=== PATIENT | male | born 1955 | race Caucasian/White ===

== ENCOUNTER → 2016-09-24 | Outpatient (CLI) | payer BC | END | disposition home or self-care (01) | LOC: PCVCIMAG 08:17 | PROVIDERS: ATTEND Internal Medicine Cardiovascular Disease | DX: I25.10 Atherosclerotic heart disease of native coronary artery without angina pectoris (principal); R07.9 Chest pain, unspecified | CPT/HCPCS: 78452; 93017; A9500 ==

== ENCOUNTER → 2018-06-01 | Outpatient (CLI) | payer OTHER ==
--- NOTE | 2018-06-01 13:48 | PCVCIMAG ---
APPROVED REPORT Study performed: 06/01/2018 10:11:11 EXAM: Comprehensive 2D, Doppler, and color-flow Echocardiogram Patient Location: Echo lab Status: routine BSA: 2.24 HR: 55 bpmBP: 110/78 mmHg Rhythm: Bradycardia Other Information Study Quality: Adequate Indications CAD bicuspid aortic valve 2D Dimensions IVSd: 11.15 (7-11mm)LVOT Diam: 22.64 (18-24mm) LVDd: 49.02 mm PWd: 9.85 (7-11mm)Ascending Ao: 35.94 (22-36mm) LVDs: 34.23 (25-40mm) Left Atrium: 39.83 (27-40mm) Aortic Root: 34.33 mm LV Single Plane 4CH: 58.32 % LV Single Plane 2CH: 64.78 % Biplane EF: 61.5 % Volumes Left Atrial Volume (Systole) Single Plane 4CH: 77.16 mLSingle Plane 2CH: 68.93 mL LA ESV Index: 37.00 mL/m2 Aortic Valve AoV Peak Hernandez.: 1.70 m/s AO Peak Gr.: 12.27 mmHgLVOT Max P.85 mmHg LVOT Max V: 0.98 m/s JESSICA Vmax: 2.32 cm2 Mitral Valve E/A Ratio: 1.2 MV Decel. Time: 291.29 ms MV E Max Hernandez.: 0.49 m/s MV A Heranndez.: 0.42 m/s MV PHT: 84.47 ms IVRT: 107.27 ms Pulmonary Valve PV Peak Hernandez.: 1.07 m/sPV Peak Gr.: 4.56 mmHg Pulmonary Vein P Vein S: 0.26 m/sP Vein A: 0.35 m/s P Vein D: 0.36 m/sP Vein A Dur.: 124.6 msec P Vein S/D Ratio: 0.72 Tricuspid Valve TR Peak Hernandez.: 2.31 m/s TR Peak Gr.: 21.33 mmHg Left Ventricle The left ventricle is normal size. There is normal LV segmental wall motion. There is normal left ventricular wall thickness. Left ventricular systolic function is normal. The left ventricular ejection fraction is within the normal range. LVEF is 60-65%. Grade I - abnormal relaxation pattern. Right Ventricle The right ventricle is normal size. The right ventricular systolic function is normal. Atria Left atrium is mildly dilated. The right atrium size is normal. Aortic Valve The aortic valve is mildly sclerotic. The aortic valve is bicuspid. No aortic regurgitation is present. There is no aortic valvular stenosis. Mitral Valve The mitral valve is normal in structure. Trace mitral regurgitation. No evidence of mitral valve stenosis. Tricuspid Valve The tricuspid valve is normal in structure. Trace tricuspid regurgitation with PAP of 28 mmHg. Pulmonic Valve The pulmonary valve is normal in structure. Trace pulmonic regurgitation. Great Vessels The aortic root is normal in size. IVC is normal in size and collapses >50% with inspiration. Pericardium There is no pericardial effusion. There is no pleural effusion. <Conclusion> The left ventricle is normal size. LVEF is 60-65%. Grade I - abnormal relaxation pattern. The right ventricle is normal size. Left atrium is mildly dilated. The aortic valve is mildly sclerotic. The aortic valve is bicuspid. There is no aortic valvular stenosis. Trace mitral regurgitation. Trace tricuspid regurgitation with PAP of 28 mmHg. The aortic root is normal in size. There is no pericardial effusion.
== END | disposition home or self-care (01) ==
LOC: PCVCIMAG 09:19
PROVIDERS: ATTEND Internal Medicine Cardiovascular Disease
DX: I25.10 Atherosclerotic heart disease of native coronary artery without angina pectoris (principal); G47.33 Obstructive sleep apnea (adult) (pediatric); Q23.1 Congenital insufficiency of aortic valve
CPT/HCPCS: 93306

== ENCOUNTER → 2018-10-11 | Outpatient (CLI) | payer OTHER ==
--- NOTE | 2018-10-11 12:16 | PCVCIMAG ---
APPROVED REPORT Study performed: 10/11/2018 10:48:50 Exam: Stress Echocardiogram Indication: CAD , Palpitations, bicuspid AV Patient Location: Echo lab Stress Nurse: Alyx Rivera RN Status: routine Ht: 6 ft 0 in HR: 68 bpm BP: 114/72 mmHg Rhythm: NSR Procedure The patient underwent an Exercise Stress Test using the Alcides Protocol. Blood pressure, heart rate, and EKG were monitored. An Echocardiogram was performed by clinical technician in four stages in quad fashion. At peak stress, four selected images were obtained and placed side by side with resting images for comparison. Stress Test Details Stress Test: Exercise stress testing was performed using a Alcides protocol. HR Resting HR: 68 bpmMax Heart Rate (APMHR): 155 bpm Max HR Achieved: 134 bpmTarget HR (85% APMHR): 131 bpm % of APMHR: 86 Recovery HR: 68 bpm HR response to stress: Normal HR response to stress BP Resting BP: 114/72 mmHg Max BP: 160/74 mmHg Recovery BP: 138/74 mmHg BP response to stress: Normal blood pressure response to stress. ECG Resting ECG: Sinus Rhythm Stress ECG: Sinus Rhythm ST Change: Normal Arrhythmia: None Recovery ECG: Sinus Rhythm Recovery ST Change: Normal Recovery Arrhythmia: None Clinical Reason for Termination: Maximal effort Stress Symptoms: Dyspnea Exercise duration: 10 min sec Highest Stage Achieved: Stage 4: 4.2 mph at 16% grade. Exercise capacity: 13.3 METs Overall Exercise Capacity for Age: Good Scale: Active Angina Score: None Pre-Stress Echo The resting Echocardiogram showed normal left ventricular contractility with an estimated Ejection Fraction of about 55%. Normal wall motion in all segments on baseline images. Post-Stress Echo The stress Echocardiogram showed normal left ventricular contractility with an estimated Ejection Fraction of about 65%. Normal augmentation of wall motion in all segments on post stress images. Clinical No clinical or ECG evidence for ischemia. Conclusion Clinical Response: Non-ischemic Exercise Capacity: Superior Stress ECG Response: Non-ischemic Stress Echo Images: Non-ischemic The left ventricle is normal in size and wall thickness in both the rest and stress images. Other Information Study Quality: Adequate <Conclusion> The left ventricle is normal in size and wall thickness in both the rest and stress images.
== END | disposition home or self-care (01) ==
LOC: PCVCIMAG 10:55
PROVIDERS: ATTEND Internal Medicine Cardiovascular Disease
DX: I25.10 Atherosclerotic heart disease of native coronary artery without angina pectoris (principal); R00.2 Palpitations; R07.89 Other chest pain
CPT/HCPCS: 93325; 93351

== ENCOUNTER → 2019-06-06 | Outpatient (CLI) | payer OTHER | END | disposition home or self-care (01) | LOC: PCVCCLINIC 13:30 | PROVIDERS: ATTEND Internal Medicine Cardiovascular Disease | DX: I25.10 Atherosclerotic heart disease of native coronary artery without angina pectoris (principal); E78.00 Pure hypercholesterolemia, unspecified; I20.8 Other forms of angina pectoris; Q23.1 Congenital insufficiency of aortic valve; G47.33 Obstructive sleep apnea (adult) (pediatric); Z79.82 Long term (current) use of aspirin; Z79.899 Other long term (current) drug therapy; R94.31 Abnormal electrocardiogram [ECG] [EKG] | CPT/HCPCS: 36415; 80061; 93005; G0463 ==